=== PATIENT | male | born 1960 | race American Indian/Alaskan Native ===

== ENCOUNTER 2020-06-13 08:07 | Outpatient (CLI) | payer OTHER ==
--- NOTE | 2020-06-13 10:41 | Cat Scan Report ---
CT ABDOMEN AND PELVIS WITHOUT CONTRAST HISTORY: Calculus of prostate. COMPARISON: None TECHNIQUE: Routine abdominal and pelvic CT exam performed without contrast. Lack of intravenous cont rast limits evaluation of the vascular and solid organs.. All CT scans at this location are performed using CT dose reduction for ALARA by means of automated exposure control. FINDINGS: CT ABDOMEN: Lung Bases: No significant abnormality. Liver: No significant abnormality. Biliary: No significant abnormality. Spleen: No significant abnormality. Unenlarged. Pancreas: No significant abnormality. Adrenals: No significant abnormality. Kidneys: No significant abnormality. Lymphatics: No lymphadenopathy. Vasculature: Atherosclerotic but nonaneurysmal abdominal aorta. Bowel/Peritoneum: No significant abnormality. No free air. No free fluid. Normal appendix. CT PELVIC: : Prostate gland appears normal in size. There are some mild prostate calcifications. Lymphatics: No lymphadenopathy. Osseous Structures: No aggressive appearing osseous lesions. There is severe DJD in the right hip and moderate DJD in the left hip. There is grade 1 spondylolisthesis at L5-S1 due to chronic bilateral L 5 spondylolysis. Additional Findings: None IMPRESSION: 1. Normal size of the prostate with mild prostate calcifications. 2. No acute findings. 3. Severe right hip DJD. Signer Name: Harrison Ambrose MD Signed: 06/13/2020 10:36 AM Workstation Name: [email or web address]
--- NOTE | 2020-06-13 12:57 | Nuclear Medicine Report ---
NUCLEAR MEDICINE SPECT BONE SCAN INDICATION / CLINICAL INFORMATION: CALCULUS OF PROSTATE. TECHNIQUE: 25.5 mCi of Tc-99m MDP were injected IV. Routine bone scan images were obtained of the whole body. Tr ansverse, sagittal, coronal, and 3-D SPECT images were obtained of the . COMPARISON: CT from 06/13/2020 FINDINGS: BONES: No osseous lesion or other abnormality. JOINTS: There is degenerative increased radiotracer uptake in bilateral shoulders. Asymmetric increas ed radiotracer uptake is present within the right hip and left knee and both ankles. SOFT TISSUES: No significant abnormality. KIDNEYS: No significant abnormality. ADDITIONAL FINDINGS: None. IMPRESSION: No abnormal radiotracer uptake to suggest osseous metastatic disease. Signer Name: Deshawn Bell MD Signed: 06/13/2020 12:53 PM Workstation Name: [id number]
== END 2020-06-13 08:08 | disposition home or self-care (01) ==
LOC: NM 08:07
PROVIDERS: ATTEND Urology
DX: M16.11 Unilateral primary osteoarthritis, right hip (principal); N42.0 Calculus of prostate; M43.17 Spondylolisthesis, lumbosacral region; I70.90 Unspecified atherosclerosis; M47.816 Spondylosis without myelopathy or radiculopathy, lumbar region
CPT/HCPCS: 74176; 78306; A9503

== ENCOUNTER 2020-08-05 05:55 | Observation (INO) | payer OTHER ==
--- NOTE | 2020-07-31 15:26 | Anesthesia Consultation ---
Anesthesia Consult and Med Hx Date of service: 08/05/20 - Airway Anesthetic Teeth Evaluation: Poor (loose left upper molar, cracked left upper 1st molar) ROM Head & Neck: Adequate Mental/Hyoid Distance: Adequate Mallampati Class: Class I Intubation Access Assessment: Good - Pulmonary Exam CTA: Yes - Cardiac Exam Cardiac Exam: No Murmur (irregular rhythm) - Pre-Operative Health Status ASA Pre-Surgery Classification: ASA3 Proposed Anesthetic Plan: General - Pulmonary Hx Smoking: Yes (quit 1988) Hx Respiratory Symptoms: No Hx Sleep Apnea: No (OVI PRE SCREEN HIGH RISK) - Cardiovascular System Hx Hypertension: No Hx Coronary Artery Disease: Yes (>4mets functional capacity, [facility] 10/2019: EF 40- 45%) Hx Heart Attack/AMI: Yes (1988) Hx Percutaneous Transluminal Coronary Angioplasty (PTCA): Yes (1988) Hx Cardia Arrhythmia: Yes (a-fib; off xarelto for surgery per fabricator special items recs) Hx Pacemaker: No Hx Internal Defibrillator: No Hx Peripheral Vascular Disease: Yes - Central Nervous System CVA: No - Endocrine Hx Renal Disease: No Hx Liver Disease: No Hx Insulin Dependent Diabetes: Yes Hx Thyroid Disease: No - Other Systems Hx Cancer: Yes (prostate ca) Hx Obesity: No - Additional Comments Anesthesia Medical History Comments: No hx anesthetic complications.
[2020-08-05] MEDS ORDERED: GABAPENTIN 300 MG CAP PO NR (06:00)
[2020-08-05] MEDS ORDERED: MAGNESIUM OXIDE 400 MG TAB PO SCH (06:00)
[2020-08-05] MEDS ORDERED: ACETAMINOPHEN 500 MG TAB PO SCH (06:00)
[2020-08-05] MEDS ORDERED: BACTERIOSTATIC SODIUM CHLORIDE 0.9% 30 ML VIAL INFILTRATI ONE (06:12)
[2020-08-05 06:54] LABS: INR 0.83 (0.87-1.13)
[2020-08-05 06:55] LABS: Partial Thromboplastin Time 26.3 Sec. (24.2-36.6)
[2020-08-05] MEDS: LACTATED RINGERS 1,000 ML IV SCH ×2 (07:00→22:08)
[2020-08-05] MEDS ORDERED: ceFAZolin/STERILE WATER 2 GM/20 ML SYRINGE IV NR (07:00)
[2020-08-05] MEDS: MIDAZOLAM 2 MG/2 ML INJ IV NR ×2 (07:00→07:25)
[2020-08-05] MEDS ORDERED: ceFAZolin/Water 2 GM/20 ML 2 GM/20 ML SYRINGE IV ONE (07:09)
[2020-08-05] MEDS ORDERED: HYDROmorphone 1 MG/1 ML INJ IV PRN (07:11)
[2020-08-05] MEDS ORDERED: ONDANSETRON 4 MG/2 ML INJ IV PRN ×2 (07:11→11:00)
--- NOTE | 2020-08-05 07:15 | Anesthesia Day of Surgery ---
Anesthesia Day of Surgery - Day of Surgery Patient Examined: Yes Patient H&P Reviewed: Yes Patient is NPO: Yes
[2020-08-05] MEDS ORDERED: LIDOCAINE MPF (2%) 20 MG/1 ML VIAL 5 ML ONE (07:20)
[2020-08-05] MEDS ORDERED: propofoL 200 MG/20 ML VIAL IV ONE (07:20)
[2020-08-05] MEDS ORDERED: ROCURONIUM 50 MG/5 ML INJ IV ONE (07:20)
[2020-08-05] MEDS ORDERED: THROMBIN (RECOMBINANT) 5,000 UNIT VIAL TP ONE ×2 (07:29→10:56)
[2020-08-05] MEDS ORDERED: CALCIUM CHLORIDE 1,000 MG/10 ML SYRINGE IV ONE ×2 (07:29→10:56)
[2020-08-05] MEDS ORDERED: METHYLENE BLUE 50 MG/10 ML AMP ONE (07:29)
[2020-08-05] MEDS ORDERED: CITRIC ACID-SOD CITRATE 500 ML IV ONE (07:29)
[2020-08-05] MEDS ORDERED: CELECOXIB 200 MG CAP PO NR (08:00)
[2020-08-05] MEDS ORDERED: BUPIVACAINE-EPINEPHRINE/PF 0.5%-1:200,000 (30 ML) VIAL INFILTRATI ONE ×2 (09:27→10:54)
[2020-08-05] MEDS ORDERED: METHYLENE BLUE 50 MG/10 ML AMP IV ONE (10:00)
[2020-08-05] MEDS ORDERED: NEOSTIGMINE 10MG/10 ML INJ MDV ONE (10:37)
[2020-08-05] MEDS ORDERED: GLYCOPYRROLATE 0.4 MG/2 ML INJ ONE (10:37)
--- NOTE | 2020-08-05 10:41 | Short Stay Summary ---
Short Stay Documentation Date of service: 08/05/20 - History H&P: obtained from office - Allergies and Medications Current Medications: Allergies No Known Allergies Allergy (Verified 07/30/20 15:45) Home Medications Medication Instructions Recorded Confirmed Last Taken Type Cyclobenzaprine HCl [Flexeril 5 MG 5 mg PO TID 07/30/20 07/30/20 08/04/20 History TAB] Insulin Degludec [Tresiba] 24 unit SQ QHS 07/30/20 07/30/20 08/04/20 History Insulin Lispro [Humalog 100 5 units SQ TID 07/30/20 07/31/20 08/04/20 History UNITS/ML Kwikpen] Lisinopril/Hydrochlorothiazide 1 each PO DAILY 07/30/20 07/30/20 08/04/20 History [Zestoretic 10-12.5 mg Tablet] Metoprolol [Lopressor TAB] 50 mg PO BID 07/30/20 07/30/20 08/04/20 History Rivaroxaban [Xarelto] 20 mg PO QDAY 07/30/20 08/05/20 3 Weeks Ago History ~07/15/20 buPROPion HCL [Bupropion HCl Sr] 150 mg PO DAILY 07/30/20 07/30/20 08/04/20 History sotaloL [Betapace] 80 mg PO BID 07/30/20 07/30/20 08/04/20 History Active Medications Acetaminophen (Acetaminophen 500 Mg Tab) 1,000 mg PO PREOP ZAN Stop: 08/05/20 23:00 Last Admin: 08/05/20 06:35 Dose: 1,000 mg Documented by: Cefazolin Sodium (Cefazolin/Sterile Water 2 Gm/20 Ml Syringe) 2 gm IV PREOP NR Stop: 08/05/20 23:59 Celecoxib (Celecoxib 200 Mg Cap) 400 mg PO PREOP NR Stop: 08/05/20 23:00 Last Admin: 08/05/20 07:20 Dose: 400 mg Documented by: Gabapentin (Gabapentin 300 Mg Cap) 300 mg PO PREOP NR Stop: 08/05/20 23:00 Last Admin: 08/05/20 06:35 Dose: 300 mg Documented by: Hydromorphone HCl (Hydromorphone 1 Mg/1 Ml Inj) 0.25 mg IV Q10MIN PRN PRN Reason: Pain, Moderate (4-6) Stop: 08/05/20 23:00 Hydromorphone HCl (Hydromorphone 1 Mg/1 Ml Inj) 0.5 mg IV Q10MIN PRN PRN Reason: Pain , Severe (7-10) Stop: 08/05/20 23:00 Lactated Ringer's (Lactated Ringers) 1,000 mls @ 100 mls/hr IV DIRECT ZAN Stop: 08/05/20 23:59 Last Admin: 08/05/20 07:00 Dose: 100 mls/hr Documented by: Magnesium Oxide (Magnesium Oxide 400 Mg Tab) 400 mg PO PREOP ZAN Stop: 08/05/20 23:00 Last Admin: 08/05/20 06:35 Dose: 400 mg Documented by: Midazolam HCl (Midazolam 2 Mg/2 Ml Inj) 2 mg IV PREOP NR Stop: 08/05/20 23:00 Last Admin: 08/05/20 07:25 Dose: 2 mg Documented by: Ondansetron HCl (Ondansetron 4 Mg/2 Ml Inj) 4 mg IV ONCE PRN PRN Reason: Nausea And Vomiting Stop: 08/05/20 23:00 - Brief post op/procedure progress note Date of procedure: 08/05/20 Pre-op diagnosis: prostate cancer Post-op diagnosis: same Procedure: robotic prostatectomy Anesthesia: GAMALIEL Surgeon: ZITA DOMINGUEZ Estimated blood loss: other (250cc) Pathology: list (prostate, median lobe) Condition: stable - Hospital course Hospital course: jessica vogt----- pt has scripts post op info on chart drain out--dc home - Disposition Condition at discharge: Stable Short Stay Discharge Plan Follow up with: NILTON CHEEMA MD [Primary Care Provider] - 7 Days
[2020-08-05] MEDS ORDERED: LACTATED RINGERS 1,000 ML ONE (10:48)
[2020-08-05] MEDS ORDERED: ONDANSETRON 4 MG/2 ML INJ ONE (10:48)
[2020-08-05] MEDS ORDERED: KETOROLAC 30 MG/1 ML INJ ONE (10:48)
[2020-08-05] MEDS ORDERED: SODIUM CHLORIDE 0.9% IRRIG SOLN 2000 ML IR ONE (10:55)
[2020-08-05] MEDS ORDERED: CITRIC ACID-SOD CITRATE SOLN 500 ML IV SOLN IV ONE (10:57)
[2020-08-05] MEDS ORDERED: HYDROcodone/ACETAMINOPHEN 5-325 MG TAB PO PRN (11:00)
[2020-08-05] MEDS ORDERED: NALOXONE 0.4 MG/1 ML INJ IV PRN (11:00)
[2020-08-05] MEDS ORDERED: MORPHINE 4 MG/1 ML INJ IV PRN (11:00)
--- NOTE | 2020-08-05 11:05 | Consultation ---
History of Present Illness - Reason for Consult Consult date: 08/05/20 Medical management Requesting physician: ZITA SHELTON - History of Present Illness 60 YO Male with VT, PVD, Atrial Fib, DM, CAP. Consult placed by Dr. Shelton for medical management. Patient taken to the operating room today for elective surgical procedure. Patient seen and evaluated upon arrival to his room. Patient denies fever, chills, chest pain, palpitation, productive cough, skin rash, recent ill contacts, or known exposure to COVID-19. Patient denies complaints. No reported nursing events. Past History Past Medical History: atrial fib, cancer, diabetes, hypertension, other (see HPI) Past Surgical History: bowel surgery, Other (Prostatectomy) Social history: single. denies: smoking, alcohol abuse, prescription drug abuse Family history: diabetes, hypertension Medications and Allergies Allergies Allergy/AdvReac Type Severity Reaction Status Date / Time No Known Allergies Allergy Verified 07/30/20 15:45 Home Medications Medication Instructions Recorded Confirmed Last Taken Type Cyclobenzaprine HCl [Flexeril 5 MG 5 mg PO TID 07/30/20 07/30/20 08/04/20 History TAB] Insulin Degludec [Tresiba] 24 unit SQ QHS 07/30/20 07/30/20 08/04/20 History Insulin Lispro [Humalog 100 5 units SQ TID 07/30/20 07/31/20 08/04/20 History UNITS/ML Kwikpen] Lisinopril/Hydrochlorothiazide 1 each PO DAILY 07/30/20 07/30/20 08/04/20 History [Zestoretic 10-12.5 mg Tablet] Metoprolol [Lopressor TAB] 50 mg PO BID 07/30/20 07/30/20 08/04/20 History Rivaroxaban [Xarelto] 20 mg PO QDAY 07/30/20 08/05/20 3 Weeks Ago History ~07/15/20 buPROPion HCL [Bupropion HCl Sr] 150 mg PO DAILY 07/30/20 07/30/20 08/04/20 History sotaloL [Betapace] 80 mg PO BID 07/30/20 07/30/20 08/04/20 History Active Meds: Active Medications Acetaminophen (Acetaminophen 500 Mg Tab) 1,000 mg PO PREOP ZAN Stop: 08/05/20 23:00 Last Admin: 08/05/20 06:35 Dose: 1,000 mg Documented by: Cefazolin Sodium (Cefazolin/Sterile Water 2 Gm/20 Ml Syringe) 2 gm IV PREOP NR Stop: 08/05/20 23:59 Celecoxib (Celecoxib 200 Mg Cap) 400 mg PO PREOP NR Stop: 08/05/20 23:00 Last Admin: 08/05/20 07:20 Dose: 400 mg Documented by: Gabapentin (Gabapentin 300 Mg Cap) 300 mg PO PREOP NR Stop: 08/05/20 23:00 Last Admin: 08/05/20 06:35 Dose: 300 mg Documented by: Hydromorphone HCl (Hydromorphone 1 Mg/1 Ml Inj) 0.25 mg IV Q10MIN PRN PRN Reason: Pain, Moderate (4-6) Stop: 08/05/20 23:00 Hydromorphone HCl (Hydromorphone 1 Mg/1 Ml Inj) 0.5 mg IV Q10MIN PRN PRN Reason: Pain , Severe (7-10) Stop: 08/05/20 23:00 Lactated Ringer's (Lactated Ringers) 1,000 mls @ 100 mls/hr IV DIRECT ZAN Stop: 08/05/20 23:59 Last Admin: 08/05/20 07:00 Dose: 100 mls/hr Documented by: Magnesium Oxide (Magnesium Oxide 400 Mg Tab) 400 mg PO PREOP ZAN Stop: 08/05/20 23:00 Last Admin: 08/05/20 06:35 Dose: 400 mg Documented by: Midazolam HCl (Midazolam 2 Mg/2 Ml Inj) 2 mg IV PREOP NR Stop: 08/05/20 23:00 Last Admin: 08/05/20 07:25 Dose: 2 mg Documented by: Ondansetron HCl (Ondansetron 4 Mg/2 Ml Inj) 4 mg IV ONCE PRN PRN Reason: Nausea And Vomiting Stop: 08/05/20 23:00 Review of Systems Constitutional: no weight loss, no weight gain, no fever, no chills Ears, nose, mouth and throat: no ear pain, no ear discharge, no tinnitis, no decreased hearing, no nose pain, no nasal congestion, no nasal discharge Cardiovascular: no chest pain, no orthopnea, no palpitations, no rapid/irregular heart beat, no edema, no syncope Respiratory: no cough, no cough with sputum, no excessive sputum, no hemoptysis, no shortness of breath Gastrointestinal: no nausea, no vomiting, no diarrhea, no constipation Genitourinary Male: no hematuria, no flank pain, no discharge, no urinary frequency, no urinary hesitancy Rectal: no pain, no incontinence, no bleeding Musculoskeletal: no neck stiffness, no neck pain, no shooting arm pain, no arm numbness/tingling, no low back pain, no shooting leg pain Integumentary: no rash, no pruritis, no redness, no sores, no wounds Neurological: no transient paralysis, no paralysis, no weakness, no parathesias, no numbness, no tingling, no seizures Psychiatric: no anxiety, no memory loss, no change in sleep habits, no sleep disturbances, no insomnia, no hypersomnia, no change in appetite, no change in libido Endocrine: no cold intolerance, no heat intolerance, no polydipsia, no polyuria, no nocturia, no excessive sweating Hematologic/Lymphatic: no easy bruising, no lymphadenopathy Allergic/Immunologic: no urticaria, no allergic rhinitis, no wheezing, no persistent infections, no anaphylaxis Exam - Constitutional Vitals: Temp Pulse Resp BP Pulse Ox 97.8 F 72 18 127/70 98 08/05/20 06:10 08/05/20 06:10 08/05/20 07:20 08/05/20 06:10 08/05/20 06:10 General appearance: Present: no acute distress - EENT Eyes: Present: PERRL ENT: hearing intact, clear oral mucosa - Neck Neck: Present: supple, normal ROM - Respiratory Respiratory effort: normal Respiratory: bilateral: CTA - Cardiovascular Heart Sounds: Present: S1 & S2. Absent: rub, click - Extremities Extremities: pulses symmetrical, No edema Peripheral Pulses: within normal limits - Abdominal General gastrointestinal: Present: soft, non-tender, non-distended, normal bowel sounds Male genitourinary: Present: normal - Integumentary Integumentary: Present: clear, warm, dry - Musculoskeletal Musculoskeletal: gait normal, strength equal bilaterally - Psychiatric Psychiatric: appropriate mood/affect, intact judgment & insight - Neurologic Neurologic: CNII-XII intact, moves all extremities Results - Labs Labs: Abnormal lab results 08/05/20 Range/Units 06:30 PT 11.3 L (12.2-14.9) Sec. INR 0.83 L (0.87-1.13) Assessment and Plan - Patient Problems (1) Diabetes Current Visit: Yes Status: Acute Plan to address problem: Insulin protocol, consistent carbohydrate diet, Accu-Chek, hypoglycemia protocol. (2) Atrial fibrillation Current Visit: Yes Status: Acute Qualifiers: Atrial fibrillation type: longstanding persistent Qualified Code(s): I48.11 - Longstanding persistent atrial fibrillation Plan to address problem: Resume anticoagulation as per primary team. (3) PVD (peripheral vascular disease) Current Visit: Yes Status: Acute Plan to address problem: Supportive care, continue current therapy. (4) Prostate cancer Current Visit: Yes Status: Acute Plan to address problem: Patient status post robotic prostatectomy, management as per primary team. (5) DVT prophylaxis Current Visit: Yes Status: Acute Plan to address problem: SCDs bilateral lower extremities while in bed (6) Advance care planning Current Visit: Yes Status: Acute Plan to address problem: Disease education conducted, prognosis discussed, care plan discussed, patient knowledges understanding and agreement with care plan. +30 minutes.
[2020-08-05] MEDS ORDERED: DEXTROSE 50% IN WATER (25GM) 50 ML SYRINGE IV PRN (11:09)
[2020-08-05] MEDS: HYDROmorphone 1 MG/1 ML INJ IV PRN ×2 (11:10→11:25)
[2020-08-05] MEDS ORDERED: MEPERIDINE 25 MG/1 ML INJ ONE (11:11)
--- NOTE | 2020-08-05 11:16 | Operative Report ---
PREOPERATIVE DIAGNOSIS: Prostate cancer, [place] 8. POSTOPERATIVE DIAGNOSIS: Prostate cancer, [place] 8. PROCEDURE: Robotic-assisted laparoscopic prostatectomy. SURGEON: Floyd Shelton MD ANESTHESIA: General. BODY REPAIRER: Rosa Lyn. ESTIMATED BLOOD LOSS: 250 mL. FLUIDS: Crystalloid. COMPLICATIONS: No complications. INDICATIONS: This patient is a 60-year-old gentleman seen for elevated PSA of 6, underwent transrectal ultrasound and biopsies. Prostate found to have [place] 8 adenocarcinoma of the prostate. CT of bone scan was negative except for degenerative changes in the spine and hip, received medical clearance. He presents now for surgical intervention. We discussed preoperatively complications including erectile dysfunction. DESCRIPTION OF PROCEDURE: The patient was taken to the operative suite, placed in a supine position. After adequate general anesthesia, he was prepped and draped in a sterile fashion. Attempts to place a Silveira catheter was unsuccessful. A 0.035 Glidewire followed by 16-Faroese st. croix tip catheter, we were able to advance it past what appeared to be a distal stricture. Nafisa colored urine returned. A 1 cm supraumbilical incision was made. Anterior traction was performed. Veress needle was used. A drop test was negative. Opening pressure 5 mL of water. Insufflation ___the abdomen to 15 mL of water was performed without difficulty, 15 cm cephalad the pubic symphysis was marked in the midline, 9 cm lateral and additional 9 cm lateral were marked for the robotic arms on the left side, 8 mm robotic ports were placed after 0-degree lens was placed in the supraumbilical incision. Ports were placed on the left side under direct vision as well as the ports were placed on the right side under direct vision, 3 ports on the right, an 8 mm port, a 10 mm helper port as well as a 5 mm helper port. The patient was then placed in an exaggerated Trendelenburg position. No signs of bleeding metastasis could be appreciated. Bladder was retracted cephalad with the third arm. Second arch was scored exposing the seminal vesicles and vas deferens was dissected out. Vas deferens was transected. Dissection to the apex of the prostate was performed. Copious irrigation was performed. No signs of significant bleeding. Attention was then taken to the anterior abdominal wall, which was scored lateral to the lateral umbilical ligament and then across the midline to allow the bladder to drop. Pubic rami could be appreciated bilaterally. The dorsal vein complex was then controlled with a 60 mm vascular stapler. Endopelvic fascia was opened laterally. The patient had a fair amount of inflammation bilaterally as well and small periprosthetic blood vessels. They were all controlled with a cautery. Bladder neck was transected anteriorly exposing the Silveira. Silveira was retracted and then placed on anterior traction. Posterior aspect of the bladder neck was then observed and transected. There was again inflammation of the median lobe and a separate portion of the median lobe was removed and sent as a separate specimen. The seminal vesicles and vas deferens was pulled anteriorly. Lateral pedicles were identified and controlled with a 60 mm vascular stapler. Dissection was taken down to the apex of the prostate, which was then removed and placed in the EndoCatch bag. Copious irrigation was performed. Adequate hemostasis was achieved. A 2-0 Vicryl stitch was placed at the 12 o'clock position of the bladder neck to aid with dissection. Double armed V-Loc stitch was placed at the 6 o'clock position of the bladder neck corresponding aspect of the urethra, running stitch was performed bilaterally. A 0.[address] The [address]. croix tip catheter was switched out for a new catheter and placed without difficulty. The wire was removed. The anastomotic stitch was cinched down. 15 mL of sterile water in the balloon, 60 mL was irrigated now with minimal clot. Platelet rich plasma and platelet poor plasma was then injected around the anastomosis as well as a platelet membrane. Shai-Riddle drain was brought out through the left-sided port. Robotic cart was then undocked. Supraumbilical incision was extended to allow removal of the prostate. Supraumbilical incision was then closed with #1 Vicryl in a [id number] fashion. Rest of these ports were closed on the skin with a 2-0 Vicryl in an interrupted fashion. Drain was secured with 2-0 silk. Silveira catheter sideport was folded over and secured with 0 Vicryl in interrupted fashion. The patient tolerated the procedure well and was extubated and taken to recovery room in stable condition. Rosa Lyn was present and at the bedside throughout the procedure. JOB# [id number] [facility]
[2020-08-05] MEDS ORDERED: MEPERIDINE 25 MG/1 ML INJ IV PRN (11:20)
--- NOTE | 2020-08-05 12:43 | Post Anesthesia Evaluation ---
- Post Anesthesia Evaluation Patient Participated: Yes Airway Patent: Yes Stable Respiratory Function: Yes Nausea/Vomiting: No Temp > 96.8F: Yes Pain Manageable: Yes Adequeate Hydration: Yes Anesthesia Complications: No Block Receding Appropriately: Not Applicable Patient on Ventilator: No
[2020-08-05] MEDS ORDERED: NON-FORMULARY EACH (Insulin Lispro [Humalog 100 Units/Ml Kwikpen] 100 UNIT/ML Insuln.Pen) SQ SCH (14:00)
[2020-08-05] MEDS ORDERED: NON-FORMULARY EACH (Cyclobenzaprine Hcl [Flexeril 5 Mg Tab] 5 MG Tablet) PO SCH (14:00)
[2020-08-05] MEDS: CYCLOBENZAPRINE 10 MG TAB PO SCH ×2 (14:31→22:11)
[2020-08-05] MEDS: ceFAZolin/NS 1 GM/50 ML 1 GM/50 ML BAG IV SCH ×2 (14:48→22:11)
[2020-08-05] MEDS: INSULIN LISPRO 100 UNIT/ML SUB-Q SCH (17:50)
[2020-08-05] MEDS ORDERED: INSULIN DEGLUDEC 100 UNIT/ML SQ SCH (21:00)
[2020-08-05] MEDS ORDERED: ZOLPIDEM 5 MG TAB PO PRN (21:00)
[2020-08-05] MEDS ORDERED: INSULIN GLARGINE 100 UNITS/ML SUB-Q SCH (21:00)
[2020-08-05] MEDS: METOPROLOL TARTRATE 50 MG TAB PO SCH (22:11)
[2020-08-06 04:03] LABS: BUN/Creatinine Ratio 18; Blood Urea Nitrogen 23 mg/dL (9-20); Calcium 8.3 mg/dL (8.4-10.2); Hemolysis Index 2
[2020-08-06 04:30] LABS: Basophils % (Auto) 0.3 % (0.0-1.8); Eosinophils # (Auto) 0.1 K/mm3 (0.0-0.4); Eosinophils % (Auto) 1.9 % (0.0-4.3); Hematocrit 30.5 % (35.5-45.6); Lymphocytes % (Auto) 17.4 % (13.4-35.0); Mean Corpuscular HGB Conc 33 % (32-34); Mean Corpuscular Volume 79 fl (84-94); Monocytes # (Auto) 0.4 K/mm3 (0.0-0.8); Monocytes % (Auto) 7.4 % (0.0-7.3); Platelet Count 147 K/mm3 (140-440); Red Blood Count 3.85 M/mm3 (3.65-5.03); Red Cell Distribution Width 15.8 % (13.2-15.2)
[2020-08-06] MEDS ORDERED: LISINOPRIL 10 MG TAB PO SCH (08:00)
[2020-08-06] MEDS ORDERED: hydroCHLOROthiazide 12.5 MG CAP PO SCH (08:00)
[2020-08-06] MEDS: INSULIN LISPRO 100 UNIT/ML SUB-Q SCH ×2 (08:54→12:32)
[2020-08-06] MEDS: CYCLOBENZAPRINE 10 MG TAB PO SCH (08:56)
[2020-08-06] MEDS: METOPROLOL TARTRATE 50 MG TAB PO SCH (08:57)
[2020-08-06] MEDS ORDERED: BUPROPION HCL 150 MG PO SCH (10:00)
[2020-08-06] MEDS ORDERED: NON-FORMULARY EACH (Lisinopril/Hydrochlorothiazide [Zestoretic 10-12.5 Mg Tablet] 1 EACH T PO SCH (10:00)
[2020-08-06] MEDS ORDERED: buPROPion SR 150 MG TAB PO SCH (10:00)
[2020-08-06 13:29] VITALS: BP 118/70
--- NOTE | 2020-08-06 16:59 | Progress Note ---
Assessment and Plan Assessment and plan: --Type II diabetes Current Visit: Yes Status: Acute Plan to address problem: Accu-Chek sliding scale coverage ADA diet insulin as needed --Atrial fibrillation; Current Visit: Yes Status: Acute Plan to address problem: Rate controlled resume anticoagulation per surgery --PVD (peripheral vascular disease) Current Visit: Yes Status: Acute Plan to address problem: Supportive care, continue current therapy. --History of prostate cancer status post prostatectomy Current Visit: Yes Status: Acute Plan to address problem: Patient status post robotic prostatectomy, Postop care per urology --DVT prophylaxis Current Visit: Yes Status: Acute Plan to address problem: SCDs bilateral lower extremities while in bed --Advance care planning Current Visit: Yes Status: Acute Plan to address problem: Patient counseled the importance of adhering to the treatment plan Also advised not to remove the urinary catheter till he sees his urologist Per schedule If he has any worsening of symptoms advised to contact MD or go to emergency room Patient verbalized understanding Medically stable for discharge Plan of care reviewed with the patient and his nurse History Interval history: I have seen and examined the patient at the bedside this morning Patient feels better no new complaints Urologist Dr. Shelton has cleared for discharge with Silveira in place Patient has no new complaints anxious to go home Vital signs noted Hospitalist Physical - Constitutional Vitals: Temp Pulse Resp BP Pulse Ox 98.3 F 67 18 118/70 98 08/06/20 11:57 08/06/20 11:57 08/06/20 11:57 08/06/20 11:57 08/06/20 11:57 General appearance: Present: no acute distress, well-nourished - EENT Eyes: Present: PERRL, EOM intact - Neck Neck: Present: supple, normal ROM - Respiratory Respiratory effort: normal Respiratory: bilateral: diminished, negative: rales, rhonchi, wheezing - Cardiovascular Rhythm: regular Heart Sounds: Present: S1 & S2 - Extremities Extremities: no ischemia, No edema - Abdominal General gastrointestinal: soft, non-tender, non-distended, normal bowel sounds - Integumentary Integumentary: Present: clear, warm - Psychiatric Psychiatric: appropriate mood/affect, cooperative - Neurologic Neurologic: moves all extremities Results - Labs CBC & Chem 7: 08/06/20 03:09 08/06/20 03:09 Labs: Laboratory Last Values WBC 5.7 K/mm3 (4.5-11.0) 08/06/20 03:09 RBC 3.85 M/mm3 (3.65-5.03) 08/06/20 03:09 Hgb 10.0 gm/dl (11.8-15.2) L 08/06/20 03:09 Hct 30.5 % (35.5-45.6) L 08/06/20 03:09 MCV 79 fl (84-94) L 08/06/20 03:09 MCH 26 pg (28-32) L 08/06/20 03:09 MCHC 33 % (32-34) 08/06/20 03:09 RDW 15.8 % (13.2-15.2) H 08/06/20 03:09 Plt Count 147 K/mm3 (140-440) 08/06/20 03:09 Lymph % (Auto) 17.4 % (13.4-35.0) 08/06/20 03:09 [place] % (Auto) 7.4 % (0.0-7.3) H 08/06/20 03:09 Eos % (Auto) 1.9 % (0.0-4.3) 08/06/20 03:09 Baso % (Auto) 0.3 % (0.0-1.8) 08/06/20 03:09 Lymph # (Auto) 1.0 K/mm3 (1.2-5.4) L 08/06/20 03:09 [place] # (Auto) 0.4 K/mm3 (0.0-0.8) 08/06/20 03:09 Eos # (Auto) 0.1 K/mm3 (0.0-0.4) 08/06/20 03:09 Baso # (Auto) 0.0 K/mm3 (0.0-0.1) 08/06/20 03:09 Seg Neutrophils % 73.0 % (40.0-70.0) H 08/06/20 03:09 Seg Neutrophils # 4.1 K/mm3 (1.8-7.7) 08/06/20 03:09 PT 11.3 Sec. (12.2-14.9) L 08/05/20 06:30 INR 0.83 (0.87-1.13) L 08/05/20 06:30 APTT 26.3 Sec. (24.2-36.6) 08/05/20 06:30 Sodium 137 mmol/L (137-145) 08/06/20 03:09 Potassium 4.9 mmol/L (3.6-5.0) 08/06/20 03:09 Chloride 104.1 mmol/L (98-107) 08/06/20 03:09 Carbon Dioxide 27 mmol/L (22-30) 08/06/20 03:09 Anion Gap 11 mmol/L 08/06/20 03:09 BUN 23 mg/dL (9-20) H 08/06/20 03:09 Creatinine 1.3 mg/dL (0.8-1.3) 08/06/20 03:09 Estimated GFR > 60 ml/min 08/06/20 03:09 BUN/Creatinine Ratio 18 % 08/06/20 03:09 Glucose 108 mg/dL (75-100) H 08/06/20 03:09 POC Glucose 211 mg/dL (70-105) H 08/06/20 10:16 Calcium 8.3 mg/dL (8.4-10.2) L 08/06/20 03:09 Coronavirus (PCR) Negative (Negative) 07/31/20 Unknown Blood Type A POSITIVE 08/05/20 06:30 Antibody Screen Negative 08/05/20 06:30 Silveira/IV: Voiding Method Indwelling Catheter IV Catheter Type [Left Forearm INT / Saline Lock ] IV Catheter Type [Right INT / Saline Lock Forearm]
== END 2020-08-06 15:04 | disposition home or self-care (01) ==
LOC: OR 05:55 → 3A 11:00 → 3B 13:19
PROVIDERS: ADMIT Urology; ATTEND Urology
DX: C61 Malignant neoplasm of prostate (principal); Z20.828 Contact with and (suspected) exposure to other viral communicable diseases; I73.9 Peripheral vascular disease, unspecified; I10 Essential (primary) hypertension; E11.9 Type 2 diabetes mellitus without complications; I25.2 Old myocardial infarction; I48.91 Unspecified atrial fibrillation; Z79.4 Long term (current) use of insulin
CPT/HCPCS: 36415; 55866; 80048; 82962; 85025; 85610; 85730; 86850; 86900; 86901; 88305; 88309; 96365; 96366; 96372; 96375; A4217; C1726; C1769; G0378; J0690; J1170; J1885; J2175; J2250; J2405; J2704; J2710; J7120; Q9968; S2900; U0003; J1815